=== PATIENT | male | born 1970 | race Hispanic/Latino ===

== ENCOUNTER 2022-02-10 18:36 | Emergency (ER) | payer SELFPAY ==
[~2022-02-10] VITALS: Ht 172.7 cm; Wt 85.3 kg
[2022-02-10] MEDS ORDERED: HYDROCODONE/APAP 5MG-325MG TAB PO ONE (20:00)
[2022-02-10] MEDS ORDERED: ONDANSETRON HCL 4 MG ORAL DISINTEGRATING TAB PO ONE (20:00)
[2022-02-10] MEDS ORDERED: ONDANSETRON HCL 4 MG ORAL DISINTEGRATING TAB ONE (20:21)
[2022-02-10] MEDS ORDERED: HYDROCODONE/APAP 5MG-325MG TAB ONE ×2 (20:21→21:24)
[2022-02-10] MEDS ORDERED: IBUPROFEN200 MG PO (21:55)
[2022-02-10] MEDS ORDERED: DIPHENHYDRAMINE50 M1 PO (21:55)
[2022-02-10] MEDS ORDERED: ULTRAM 50MG50 MG PO (21:55)
[2022-02-10 22:03] VITALS: BP 155/94
== END 2022-02-10 22:03 | disposition home or self-care (01) ==
LOC: FSED 18:44
DX: S22.42XA Multiple fractures of ribs, left side, initial encounter for closed fracture (principal); W22.09XA Striking against other stationary object, initial encounter; Y99.0 Civilian activity done for income or pay; I10 Essential (primary) hypertension; E78.00 Pure hypercholesterolemia, unspecified
CPT/HCPCS: 71250; 74176; 99283; Q0162